=== PATIENT | female | born 1985 | race Caucasian/White ===

== ENCOUNTER 2016-09-01 14:38 | Emergency (ER) | payer MEDICAID ==
[~2016-09-01] VITALS: Ht 154.9 cm; Wt 66.4 kg
[~2016-09-01 14:38] MED LIST: ASPIRIN 32325 MG/TAB PO; ASPIRIN 81M81 MG/TA2 PO; ATIVAN 1MG T1 MG/TAB PO; BACTRIM DS 8001 TAB PO; BENADRYL25 M2 PO; BUSPAR 30MG30 MG/TAB PO; CEFTIN500 MG PO; CEPHALEXIN500 M1 PO; CIPRO 500MG TA500 MG PO; CLEOCIN HC150 MG/CAP PO; COZAAR 50MG50 MG/TAB PO; DEPAKOTE ER 50500 MG PO; DEPAKOTE ER500 MG PO; DOXYCYCLINE 10100 MG PO; FLEXERIL 1010 MG/TAB PO; FLOXIN 5 ML5 ML OT; GENTAMICIN OPTHA3 GM OS; GLUCOPHAGE1000 MG PO; IMITREX 25MG TA25 MG PO; IMITREX 6M6 MG/0.5 M SQ; KEPPRA 500MG500 MG; KEPPRA 500MG500 MG PO; KEPPRA500 MG PO; LORTAB 5/500 501 TAB PO; LOVAZA1 GM PO; METFORMIN500 MG PO; MINIPRESS 1M1 MG/CAP PO; NEXIUM 40MG40 MG PO; NIACIN500 M3 PO; NORCO 325 MG-101 TAB PO; NORCO 325 MG-51 TAB; NORCO 325 MG-51 TAB PO; NORCO 325 MG-7.1 TAB PO; OMNICEF 300MG300 MG PO; PERCOCET 325 MG1 TA2 PO; PHENERGAN 25 TA25 MG PO; PRINIVIL5 MG PO; PYRIDIUM 100MG100 MG PO; TRILEPTAL300 MG PO; TRILEPTAL600 MG PO; ULTRAM 50MG TAB50 MG PO; VALIUM 10MG10 MG/TAB PO; VALIUM10 MG PO; VIT B 12 IM; VITAMIN D1000 IU PO; XANAX 0.5MG0.5 MG PO; ZOCOR 40MG40 MG PO; ZOFRAN8 MG PO; ZYRTEC 10MG10 MG PO
[2016-09-01 14:39] VITALS: BP 158/110; PULSE 96; TEMP 98.1
== END 2016-09-01 15:39 | disposition home or self-care (01) ==
LOC: COL.ER 14:38
DX: H60.503 Unspecified acute noninfective otitis externa, bilateral (principal)

== ENCOUNTER 2016-09-26 17:09 | Emergency (ER) | payer SELFPAY ==
[~2016-09-26] VITALS: Ht 154.9 cm; Wt 66.4 kg
[2016-09-26 17:10] VITALS: BP 150/86; TEMP 99.1
[2016-09-26 19:28] VITALS: PULSE 67
== END 2016-09-26 19:28 | disposition home or self-care (01) ==
LOC: COL.ER 17:09
DX: G43.909 Migraine, unspecified, not intractable, without status migrainosus (principal); F17.210 Nicotine dependence, cigarettes, uncomplicated
CPT/HCPCS: J1110; J1200; J2550; J2765; J7030

== ENCOUNTER 2016-10-24 09:37 | Emergency (ER) | payer SELFPAY ==
[~2016-10-24] VITALS: Ht 152.4 cm; Wt 63.6 kg
[2016-10-24 09:43] VITALS: TEMP 101.2
[2016-10-24 10:58] LABS: BASO % 0.2 % (0.0-2.0); GRAN # 17.6 (1.4-6.5); HEMOGLOBIN 14.5 g/dl (12.5-16.0); LYMPH # 1.5 (1.2-3.4); LYMPH % 7.5 % (20.0-51.0); MEAN CELL VOLUME 87 fl (80.0-100.0); MEAN CORPUSCULAR HEMOGLOBIN 29 pg (27.0-31.0); MEAN CORPUSCULAR HGB CONC 34 g/dl (33.0-37.0); MEAN PLATELET VOLUME 12.9 fl (7.4-10.4); MONO # 1.2 (0.1-0.6); MONO % 5.7 % (1.7-9.3); PLATELET COUNT 184 K/mm3 (130-400); RED BLOOD COUNT 4.96 M/mm3 (4.10-5.30); REDCELL DISTRIBUTION WIDTH-CV 14.6 % (11.5-14.5)
[2016-10-24 11:03] LABS: WHITE BLOOD COUNT 20.4 K/mm3 (4.8-10.8)
[2016-10-24 11:10] LABS: CALCIUM 9.6 mg/dL (8.4-10.2); CREATININE, serum 0.63 mg/dL (0.52-1.25); POTASSIUM 3.3 mmol/L (3.4-5.0)
[2016-10-24] MEDS ORDERED: CLEOCIN HCL300 MG PO (12:15)
[2016-10-24] MEDS ORDERED: ULTRAM 50MG TAB50 MG PO (12:15)
[2016-10-24 12:42] VITALS: BP 109/84; PULSE 94
== END 2016-10-24 12:43 | disposition home or self-care (01) ==
LOC: COL.ER 09:37
PROVIDERS: Emergency Medicine
DX: K14.0 Glossitis (principal); L03.221 Cellulitis of neck; F17.210 Nicotine dependence, cigarettes, uncomplicated; E11.9 Type 2 diabetes mellitus without complications; R22.1 Localized swelling, mass and lump, neck
CPT/HCPCS: J1100; J1170; J1885; Q9967

== ENCOUNTER 2016-12-30 09:23 | Emergency (ER) | payer SELFPAY ==
[~2016-12-30] VITALS: Ht 154.9 cm; Wt 68.2 kg
[~2016-12-30 09:23] MED LIST changes: +CLEOCIN HCL300 MG PO
[2016-12-30 09:28] VITALS: BP 127/94; TEMP 99.1
[2016-12-30 11:59] VITALS: PULSE 70
== END 2016-12-30 12:01 | disposition home or self-care (01) ==
LOC: COL.ER 09:23
DX: G43.909 Migraine, unspecified, not intractable, without status migrainosus (principal); F17.210 Nicotine dependence, cigarettes, uncomplicated; Z86.79 Personal history of other diseases of the circulatory system; G40.909 Epilepsy, unspecified, not intractable, without status epilepticus
CPT/HCPCS: J1200; J1885; J2765; J7030

== ENCOUNTER 2017-01-16 00:32 | Emergency (ER) | payer SELFPAY ==
[~2017-01-16] VITALS: Ht 154.9 cm; Wt 69.5 kg
[2017-01-16 00:51] VITALS: TEMP 97.9
[2017-01-16 01:47] VITALS: BP 145/94; PULSE 74
== END 2017-01-16 01:47 | disposition home or self-care (01) ==
LOC: COL.ER 00:32
DX: S96.912A Strain of unspecified muscle and tendon at ankle and foot level, left foot, initial encounter (principal); X50.1XXA Overexertion from prolonged static or awkward postures, initial encounter; Y92.009 Unspecified place in unspecified non-institutional (private) residence as the place of occurrence of the external cause; G40.909 Epilepsy, unspecified, not intractable, without status epilepticus

== ENCOUNTER 2017-01-25 12:11 | Emergency (ER) | payer SELFPAY ==
[~2017-01-25] VITALS: Ht 154.9 cm; Wt 67.7 kg
[2017-01-25 12:13] VITALS: BP 174/94; TEMP 98.4
[2017-01-25] MEDS ORDERED: AMOXICILLIN 8751 TAB PO (12:17)
[2017-01-25 13:44] VITALS: PULSE 94
== END 2017-01-25 13:45 | disposition home or self-care (01) ==
LOC: COL.ER 12:11
DX: R51 Headache (principal); H65.93 Unspecified nonsuppurative otitis media, bilateral; E11.9 Type 2 diabetes mellitus without complications; G40.909 Epilepsy, unspecified, not intractable, without status epilepticus; F43.10 Post-traumatic stress disorder, unspecified; Z86.79 Personal history of other diseases of the circulatory system
CPT/HCPCS: J1885

== ENCOUNTER 2019-08-12 17:29 | Emergency (ER) | payer MEDICAID ==
[~2019-08-12] VITALS: Ht 157.5 cm; Wt 86.4 kg
[~2019-08-12 17:29] MED LIST changes: +AMOXICILLIN 8751 TAB PO
[2019-08-12 17:49] VITALS: TEMP 98.3
[2019-08-12 18:25] LABS: BASO # 0.1 (0.0-0.2); BASO % 0.4 % (0.0-2.0); EOS # 0.1 (0.0-0.7); EOS % 1.1 % (0-4.0); GRAN # 8.1 (1.4-6.5); GRAN % 68.2 % (42.2-75.2); HEMOGLOBIN 12.8 g/dl (12.5-16.0); LYMPH # 2.8 (1.2-3.4); LYMPH % 23.2 % (20.0-51.0); MEAN CELL VOLUME 87 fl (80.0-100.0); MEAN CORPUSCULAR HEMOGLOBIN 29 pg (27.0-31.0); MEAN CORPUSCULAR HGB CONC 33 g/dl (33.0-37.0); MEAN PLATELET VOLUME 12.5 fl (7.4-10.4); MONO # 0.8 (0.1-0.6); MONO % 6.4 % (1.7-9.3); PLATELET COUNT 231 K/mm3 (130-400); RED BLOOD COUNT 4.49 M/mm3 (4.10-5.30); REDCELL DISTRIBUTION WIDTH-CV 13.9 % (11.5-14.5)
[2019-08-12 18:35] LABS: ALBUMIN 4.7 gm/dL (3.5-5.0); BILIRUBIN,TOTAL 0.4 mg/dL (0.0-1.0); CALCIUM 10.2 mg/dL (8.4-10.2); CREATININE, serum 0.5 (0.52-1.25); POTASSIUM 3.7 mmol/L (3.4-5.0); TOTAL PROTEIN 8.1 gm/dL (6.4-8.2)
[2019-08-12] MEDS ORDERED: ZITHROMAX Z PA250 MG PO (19:25)
[2019-08-12] MEDS ORDERED: TESSALON PERLE200 MG PO (19:50)
[2019-08-12 20:55] VITALS: BP 147/95; PULSE 93
== END 2019-08-12 20:55 | disposition home or self-care (01) ==
LOC: COL.ER 17:29
PROVIDERS: Family Medicine
DX: J20.9 Acute bronchitis, unspecified (principal); E11.9 Type 2 diabetes mellitus without complications; G40.909 Epilepsy, unspecified, not intractable, without status epilepticus
CPT/HCPCS: J0696; J2550; J3010; J7030